=== PATIENT | female | born 1940 | race Caucasian/White ===

== ENCOUNTER 2023-01-18 13:15 | Outpatient (CLI) | payer MEDICARE, SELFPAY ==
[2023-01-18 15:36] LABS: Basophils Percent Auto 0.5 % (0.2-1.2); Eosinophils Absolute Auto 0.2 K/mm3 (0-0.3); Eosinophils Percent Auto 2.6 % (0-4.4); Hematocrit 36.6 % (37.0-47.0); Hemoglobin 11.7 g/dL (12.0-15.0); Immature Granulocyte Absolute 0.02 K/mm3 (0.00-0.031); Immature Granulocyte Percent A 0.3 % (0-0.5); Lymphocytes Absolute Auto 1.61 K/mm3 (0.9-3.2); Lymphocytes Percent Auto 26.1 % (18.3-44.2); Mean Corpuscular Hemoglobin 30.1 pg (26-34); Mean Corpuscular Volume 94.1 fl (80-100); Mean Platelet Volume 12.5 fl (7.4-10.4); Monocytes Absolute Auto 0.7 K/mm3 (0.1-0.6); Monocytes Percent Auto 11.5 % (2.6-8.5); Neutrophils Absolute Auto 3.7 K/mm3 (1.3-6.7); Platelet Count Result 141 k/mm3 (150-375); Red Blood Count 3.89 M/mm3 (4.2-5.4); Red Cell Distribution Width 13.2 % (11.5-14.5); White Blood Count 6.2 K/mm3 (4.5-10.0)
[2023-01-18 15:52] LABS: Albumin Level 4.6 g/dL (3.5-5.1); Estimated Glomerular Filt Rate 43; Glucose 101 mg/dL (65-110)
[2023-01-18 16:13] LABS: Urine Cotinine NEGATIVE
[2023-01-18 17:43] LABS: Hemoglobin A1C 5.6 % (<5.7)
== END 2023-01-18 13:16 | disposition home or self-care (01) ==
LOC: ANHSURGERY 13:25
PROVIDERS: Visit Provider Orthopaedic Surgery
DX: M16.11 Unilateral primary osteoarthritis, right hip (principal); Z01.818 Encounter for other preprocedural examination
CPT/HCPCS: 80307; 82040; 82565; 82947; 83036; 85025; 87081

== ENCOUNTER 2023-02-11 01:15 | Day surgery (SDC) | payer MEDICARE, SELFPAY ==
[2023-01-18 14:00] VITALS: BMI 26.5
--- NOTE | 2023-01-18 14:36 | PC.NURSE ---
Report to the Outpatient Waiting Room, entrance under the green pavilion located off [facility], at time __0600 on date _02/11/23 . Planned Procedure Time: __0730 . Time changes happen often and if your time is changed the preop area will call you the afternoon before. - You and your visitor will be asked to self-screen and do not enter if you have any COVID symptoms. - A mask is optional within the hospital at this time. Patients may have clear liquids (water, carbonated beverages, clear teas, apple juice) until 3 hours prior to surgery with a maximum of 20 ounces. - No food from midnight until time of surgery - Infants may have breast milk until 4 hours before surgery, infant formula 6 hours prior to surgery. - Children will be allowed to drink immediately following surgery. If applicable, please bring a bottle or sippy cup to assist with drinking. Juice, water, soda, and popsicles are readily available. For infants on formula, please bring formula the day of surgery. Pacifiers are allowed. Take the following medications with a SIP of water the morning of surgery: ____ATENOLOL,LEVOTHYROXINE DO NOT STOP ANY OF YOUR OTHER PRESCRIPTION MEDICATIONS PRIOR TO SURGERY ?EXCEPT THE FOLLOWING Medications to discontinue per physician ALL VITAMINS AND SUPPLEMENTS 3 DAYS PRE OP.LAST DOSE 02/08/23 Please no make-up, nail israeli, hairspray, perfume, deodorant, or body powder the day of surgery. No jewelry (including any body piercings) or valuables the day of surgery, leave them at home. Please take a shower or bath the night before, or the morning of, surgery with an antibacterial soap. Wear comfortable, loose fitting clothing. Children are encouraged to wear pajamas. - Jewelry must be removed prior to entering the operating room. Rings and piercings that are not removed may be cut off. - The hospital will not accept responsibility for valuables. - Please leave all valuables, including medications, at home the day of surgery. If you are going home after surgery, a licensed combine driver must drive you home. - NO public transportation without another adult if you receive anesthesia. - We recommend that an adult stay with you for 24 hours following discharge. - We also recommend that you do not drive, make important decision, drink alcoholic beverages, or take any drugs that were not prescribed by your health care provider for at least 24 hours after your discharge time. For Pediatric surgeries, we recommend two adults accompany the child home. Follow any additional instructions given to you from your surgeon. If you or anyone in your household have experienced Covid symptoms in the past week, please notify your surgeon or the nurse liaison at the phone number below for possible testing. VERBAL AND WRITTEN instructions given to _PATIENT and asked if any additional questions and then verbalized understanding. Patient advised to call surgeon office or pre surgery nurse liaison [phone] if any additional questions.
[2023-01-18 14:57] VITALS: BP 165/67; PULSE 54; RESP 18; TEMP 36.7; O2SAT 98
--- NOTE | 2023-02-10 15:00 | WPDANESEPPF ---
Anes - Initial Pre Proc Eval Procedure: Operation Date: 02/11/23 07:30 Proposed Procedures p Right Total Hip Arthroplasty - Ildefonso Ray MD Date/Time: 02/10/23 15:00 Surgeon: Ildefonso Ray MD Pre Op Diagnosis: primary OA right hip Patient Data Age: 83 Gender: F Height: 1.63 m Weight: 70.2 kg Last Vital Signs Temp 98.0 F 01/18/23 14:57 Pulse 54 L 01/18/23 14:57 Resp 18 01/18/23 14:57 BP 165/67 H 01/18/23 14:57 Pulse Ox 98 01/18/23 14:57 O2 Del Method Room Air 01/18/23 14:57 Allergies Allergy/AdvReac Type Severity Reaction Status Date / Time No Known Drug Allergies Allergy Unknown Unknown Verified 02/11/23 06:20 Home Medications Medication Instructions Recorded Confirmed Type atenolol 25 mg tablet 25 mg PO DAILY 09/01/22 02/11/23 History levothyroxine 75 mcg tablet 75 mcg PO DAILY 09/01/22 02/11/23 History (Euthyrox) nifedipine 60 mg tablet,extended 60 mg PO QPM 09/01/22 02/11/23 History release pravastatin 20 mg tablet 20 mg PO QPM 09/01/22 02/11/23 History acetaminophen 500 mg capsule 1,000 mg PO TID PRN Pain 01/18/23 02/11/23 History cholecalciferol (vitamin D3) 50 50 mcg PO DAILY 01/18/23 02/11/23 History mcg (2,000 unit) tablet multivitamin (Daily Multi-Vitamin 1 tablet PO DAILY 01/18/23 02/11/23 History tablet) Patient hx anesthesia problems: post op nausea/vomiting Family hx anesthesia problems: none Results Review: All pre-operative results and documents have been reviewed as part of the pre-operative evaluation. [facility] Past Medical History Medical History Cholelithiasis COPD (chronic obstructive pulmonary disease) Diverticulosis Hiatal hernia History of bruising easily Hyperlipidemia Hypertension Osteoarthritis Sleep apnea Surgical History Surgical History History of left mastectomy History of thyroidectomy Right History of tooth extraction Family History Family History Father Colon cancer high risk Social History Social History Smoking packs per day: 2 Smoking cigarettes per day: 40.0 Years smoked: 20 Smoking pack-years: 40.00 Smoking status: Former smoker Tobacco type: cigarettes Smoking end date: 06/14/74 Additional smoking assessment comments: DENIES ANY FORM OF TOBACCO USE Alcohol intake: never Substance use: never Lack of Transportation: No Lack of Food: Never True Current Housing: I Have Housing Concerned About Future Housing: No Difficulty Paying Gas/Electric Bills: No Difficulty Paying for Meds: No Currently Unemployed: No Education: High School Diploma/GED Difficulty w/ Childcare or Family Care: No Living arrangements: alone Occupation/Education: retired Gender identity (if verbalized by the patient): Female Spiritual care concerns: No Anes - Eval Final PreProcedure Day of Procedure 02/10/23 15:00 Patient weight: normal Heart: regular rate and rhythm Lungs: clear to auscultation Airway: Mallampati scale class II Neurological: alert and oriented Last oral intake: >/= 8 hours ASA classification: III Emergent: no Anesthetic plan: proceed Anesthesia type and monitoring: general ETT and standard monitoring Results Review: All pre-operative results and documents have been reviewed as part of the pre-operative evaluation. Informed Consent: The patient's anesthetic plan and its attendant risks and benefits were discussed with the patient/family/POA. Questions were solicited and answers provided to the satisfaction of the patient/family/POA.
[2023-02-11] VITALS (17 sets, daily range): BP systolic 130–168; BP diastolic 53–91; PULSE 51–79; RESP 12–18; TEMP 36.2–36.8; O2SAT 92–100
--- NOTE | ~2023-02-11 | XR_ITS ---
Right Hip Technique: Portable AP an lateral views Clinical History: Status post hip arthroplasty Findings: Patient is status post right hip arthroplasty. Orthopedic hardware alignment appears anatom ic. No hardware complication is evident. Subcutaneous emphysema and swelling is likely postoperative in nature. No acute osseous fracture is seen. Impression: Status post total right hip arthroplasty, without evidence of hardware complication. Reviewed, dictated and finalized at location . Impression: Status post total right hip arthroplasty, without evidence of hardware complica tion.
[2023-02-11] MEDS: ACETAMINOPHEN 500 MG TABLET 1000 MG PO ×4 (06:30→23:26)
[2023-02-11] MEDS: LACTATED RINGERS 1,000 ML 30 ML IV CONT ×2 (06:40→10:22)
[2023-02-11] MEDS: TRANEXAMIC ACID 1,000MG/ISO100 1,000 MG/100 ML BAG 200 MG IVPB (07:14)
--- NOTE | 2023-02-11 07:15 | WPDHPUPDATE1 ---
History and Physical Update Update Date/Time: 02/11/23 07:15 History and Physical has been reviewed, including an updated exam of the patient. There are NO changes in the patient's condition. Risks, benefits, and alternatives have been discussed and questions answered. Patient agrees to proceed with procedure.
[2023-02-11] MEDS: ceFAZolin 2 GM/D5W 50 ML 2 GM/50 ML BAG IVPB ×3 (07:33→22:19)
--- NOTE | 2023-02-11 10:31 | W.PM.PROC2 ---
Procedure Note - Detailed Date of Procedure 02/11/23 Pre-op Diagnosis primary OA right hip Post-op Diagnosis Same Procedure Performed Right Total Hip Arthroplasty Surgeon Ildefonso Ray MD Access Service Representative Daria Guillen PA-C Anesthesia General Findings Satisfactory bone quality. Acetabulum slightly shallow. Two supplemental screws used. Some acetabular retroversion with large osteophytes anteriorly. Cup placed approximately 20? anteversion. Femoral approximately 10? anteversion. Combined 30? anteversion. Description of Procedure The patient was given preoperative antibiotics. A general anesthetic was administered. The patient was carefully placed in the lateral decubitus position on the PEG board. The shoulders and hips were carefully positioned for component and leg length positioning reference. The hip was prepped and draped in the usual sterile fashion. A longitudinal incision was created over the posterior aspect of the greater trochanter. Careful dissection was brought down through the deep fascia with electrocautery. A minimally invasive optimized posterior approach to the hip was performed. The short external rotators and capsule were taken down in an L-shaped capsulotomy. The tissue was tagged for later repair using number 2 high strength suture. The femoral neck was measured and taken in situ. The femoral head was removed. The acetabulum was carefully exposed. The inferior capsule was released. The labrum was resected. The acetabulum was sequentially reamed to the intended cup size. The cup was impacted into position with excellent press-fit. Typical anatomic landmarks, including the bony contact points as well as the inferior transverse acetabular ligament were used to confirm cup positioning with preoperative templating. Two supplemental screws were placed. Attention was turned to the femur, which was carefully exposed. The hip was reamed and then broached sequentially. Excellent press-fit was obtained with the broach. The hip was trialed. Measurements were utilized, including the lesser trochanter as well as the center of the femoral head and the tip of the trochanter, and excellent assessment of the offset and leg lengths were confirmed. The real component was impacted into position. Trialing confirmed appropriate leg length and offset with soft tissue balancing as well apparent feel of the leg, both at the knee and the heel. Soft tissues were assessed using the the iliotibial band. Reduction of the posterior capsule and external rotators were also used as a secondary assessment. The hip was copiously irrigated with pulsatile lavage antibiotic solution periodically throughout the procedure. The real components were then assembled and reduced. The hip was stable throughout typical maneuvers, including extension, external rotation to 70 degrees, the position of sleep as well as flexion to 90 degrees with internal rotation past 35 degrees. The shake test confirmed stability without impingement. Osteophytes were removed as necessary. The short external rotators and capsule were repaired back to the posterior trochanter through drill holes. The deep fascia was repaired with running number 2 Quill suture, followed by 0 Stratafix suture and 2-0 Stratafix suture in the dermis. Steri-Strips were placed on the skin, followed by a sterile silver occlusive dressing. There were no complications. Meticulous hemostasis was maintained with the AquaMantys device. The patient was brought to the recovery room in stable condition. There were no complications. Physician assistant director of financial aid, Daria Guillen PA-C, required for surgery; including patient positioning, draping, tissue retraction, maintaining instrument position, hip dislocation/ relocation, wound closure, and dressing placement. Implants The Accolade II hip stem, 127 degree size 4 , was utilized with excellent press-fit. The 48 mm Trident II acetabular component was impacted with exc
--- NOTE | 2023-02-11 12:07 | ADMGEN ---
This patient, Yany Meek, was admitted to Medical Room 251-. Patient/family oriented to hospital policies and general routines including ID bracelet, bed and alarms, visiting hours, pain management, procedures, bathroom and other care routines, personal items, smoking policy, room service/diet, and visiting hours. Information on how to activate the Rapid Response Team has been discussed. Patient/Family are encouraged to report perceived risks to care and to ask questions if they do not understand what they are told or what they should do.
[2023-02-11] MEDS: SODIUM CHLORIDE 0.9% IV 1,000 ML 125 ML IV CONT (12:59)
[2023-02-11] MEDS: ASPIRIN 81 MG ENTERIC TABLET PO (18:54)
[2023-02-11] MEDS: PRAVASTATIN SODIUM 20 MG TABLET PO (18:55)
[2023-02-11] MEDS: NIFEdipine 30 MG TAB.ER.24 60 MG PO (18:55)
[2023-02-11] MEDS: SENNA/DOCUSATE SODIUM TABLET 2 TAB PO (18:55)
[2023-02-11] MEDS: FAMOTIDINE 20 MG TABLET PO (20:42)
[2023-02-12 00:10] VITALS: BP 126/45; PULSE 73; RESP 18; TEMP 36.2; O2SAT 93
[2023-02-12] MEDS: LEVOTHYROXINE SODIUM 75 MCG TABLET PO (03:19)
[2023-02-12 04:11] VITALS: BP 110/51; PULSE 67; RESP 20; TEMP 36.8; O2SAT 96
[2023-02-12] MEDS: ACETAMINOPHEN 500 MG TABLET 1000 MG PO ×2 (06:38→11:45)
[2023-02-12 09:05] VITALS: BP 113/59; PULSE 67; RESP 14; O2SAT 97
[2023-02-12] MEDS: ASPIRIN 81 MG ENTERIC TABLET PO (09:06)
[2023-02-12 09:07] VITALS: PULSE 66
[2023-02-12] MEDS: SENNA/DOCUSATE SODIUM TABLET 2 TAB PO (09:07)
[2023-02-12] MEDS: FAMOTIDINE 20 MG TABLET PO (09:07)
[2023-02-12] MEDS: polyethylene glycoL 3350 17 GM POWD.PACK PO (09:07)
[2023-02-12] MEDS: CYCLOBENZAPRINE HCL 10 MG TABLET PO (09:07)
[2023-02-12] MEDS: atenoloL 25 MG TABLET PO (09:07)
--- NOTE | 2023-02-12 09:15 | PM.DS ---
DS: Admitting Diagnosis Discharge Date 02/13/12 Admitting Diagnosis OA Right hip DS: Discharge Diagnosis Discharge Diagnosis (1) Status post total hip replacement, right: Code(s): Z96.641 - Presence of right artificial hip joint Status: Acute Assessment and Plan: Postop day 1: Total hip arthroplasty. Patient tolerated procedure well. No complications. Pain manageable with pain medication. No numbness or tingling. We had a lengthy discussion regarding postoperative wound care, limitations, expectations, and exercises. Patient shows good understanding. Patient has had initial physical therapy and is tolerating it well. DVT prophylaxis: 81 mg baby aspirin b.i.d. for 14 days. Short frequent walks. Pain medication: Percocet. Meloxicam Patient has followup appointment with Dr. Ray in 3 weeks DS: Summary Hospital Course Reason for hospitalization: Total hip arthroplasty Hospital Course: Patient tolerated procedure well. Has had initial PT/OT and made good progress. Status at Discharge Functional status at discharge: uses cane/walker Overall status at discharge: patient is progressing back to baseline Time Spent with Patient Time attestation: Total time spent providing and/or coordinating discharge services: Exam Narrative: Normal weight 83 y/o female. Resting comfortably in bed. Wearing compression socks bilaterally. Dressing dry and intact with no drainage. Moderate swelling. No ecchymosis. No erythema. No hematoma. Range of motion limited due to pain. Calf nontender. Thigh nontender. Neurologic status intact. No varicosities. Distal pulses palpable. Discharge Plan Discharge Patient Disposition: Home, Self-Care Discharge Instructions: See green instruction sheet Stand Alone Forms: General Discharge Instructions Follow-up/Referrals: Daria Guillen PA [Physician Paradichlorobenzene Machine Operator] - Discharge Medications: New meloxicam 15 mg tablet 15 mg PO DAILY Qty: 30 0RF Rx Instructions: Cut in half. Take 1/2 in morning and 1/2 at night. Take with food. Stop if stomach upset. aspirin 81 mg tablet,delayed release (DR/EC) 81 mg PO BID 14 Days Qty: 28 0RF oxycodone-acetaminophen 5-325 mg tablet 1 - 2 tablet PO Q4-6H MDD 6 PRN (Reason: pain) Qty: 30 0RF Continued atenolol 25 mg tablet 25 mg PO DAILY nifedipine 60 mg tablet extended release 60 mg PO QPM pravastatin 20 mg tablet 20 mg PO QPM levothyroxine [Euthyrox] 75 mcg tablet 75 mcg PO DAILY multivitamin [Daily Multi-Vitamin] Tablet 1 tablet PO DAILY cholecalciferol (vitamin D3) 50 mcg (2,000 unit) Tablet 50 mcg PO DAILY Held acetaminophen 500 mg Capsule 1,000 mg PO TID PRN (Reason: Pain) Hold Instructions: Resume on 02/18/23. Do not take more than 3,000 mg in 24 hours. Oxycodone has 325 mg Tylenol ineach pill.
[2023-02-12 09:59] LABS: Basophils Percent Auto 0.2 % (0.2-1.2); Hematocrit 29.5 % (37.0-47.0); Hemoglobin 9.4 g/dL (12.0-15.0); Immature Granulocyte Absolute 0.14 K/mm3 (0.00-0.031); Immature Granulocyte Percent A 1.3 % (0-0.5); Lymphocytes Absolute Auto 1.14 K/mm3 (0.9-3.2); Lymphocytes Percent Auto 10.3 % (18.3-44.2); Mean Corpuscular HGB Conc 31.9 g/dl (32-36); Mean Corpuscular Hemoglobin 30.1 pg (26-34); Mean Corpuscular Volume 94.6 fl (80-100); Mean Platelet Volume 11.2 fl (7.4-10.4); Monocytes Absolute Auto 0.8 K/mm3 (0.1-0.6); Monocytes Percent Auto 7.6 % (2.6-8.5); Neutrophils Absolute Auto 8.9 K/mm3 (1.3-6.7); Neutrophils Percent Auto 80.6 % (45.5-73.1); Platelet Count Result 201 k/mm3 (150-375); Red Blood Count 3.12 M/mm3 (4.2-5.4); Red Cell Distribution Width 14.3 % (11.5-14.5); White Blood Count 11.1 K/mm3 (4.5-10.0)
[2023-02-12 10:00] VITALS: BP 114/54; PULSE 62; RESP 17; TEMP 36.4; O2SAT 100
--- NOTE | 2023-02-12 10:01 | WPDANESPN ---
Anes - Prog Note Post-Op Date/Time: 02/12/23 10:01 Cardiovascular status: normal Respiratory status: normal Airway patency: baseline Mental status: baseline Post-Op hydration status: normal Vital Signs: Last Vital Signs Temp 36.8 C 02/12/23 04:11 Pulse 66 02/12/23 09:07 Resp 14 02/12/23 09:05 BP 113/59 L 02/12/23 09:05 Pulse Ox 97 02/12/23 09:05 O2 Del Method Room Air 02/11/23 20:00 O2 Flow Rate 1.5 02/11/23 13:56 Pain Score (VAS): 0 I/O: Intake & Output 02/11/23 02/12/23 02/12/23 23:59 07:59 15:59 Intake Total 1220 340 240 Balance 1220 340 240 Laboratory Tests 02/12/23 09:43 02/12/23 09:43 WBC 11.1 H RBC 3.12 L Hgb 9.4 L Hct 29.5 L MCV 94.6 MCH 30.1 MCHC 31.9 L RDW 14.3 Plt Count 201 MPV 11.2 H Immature Gran % (Auto) 1.3 H Neut % (Auto) 80.6 H Lymph % (Auto) 10.3 L [place] % (Auto) 7.6 Eos % (Auto) 0.0 Baso % (Auto) 0.2 Lymph # (Auto) 1.14 [place] # (Auto) 0.8 H Eos # (Auto) 0.0 Baso # (Auto) 0.0 Abs Immat Gran (auto) 0.14 H Absolute Neuts (auto) 8.9 H Absolute Nucleated RBC 0.0 Nucleated RBC % 0.0 Sodium Pending Potassium Pending Chloride Pending Carbon Dioxide Pending Anion Gap Pending BUN Pending Creatinine Pending Estim Creat Clear Calc Pending Estimated GFR Pending Glucose Pending Calcium Pending Post-procedural complaints: none Patient Feedback: Patient satisfied with anesthetic care.
[2023-02-12 10:10] LABS: Anion Gap 12 mmol/L (8-16); Blood Urea Nitrogen 22 mg/dL (7-17); Calcium 8.5 mg/dL (8.4-10.2); Carbon Dioxide 19 mmol/L (22-30); Chloride 108 mmol/L (98-107); Estimated CRCL calculation 27 ml/min; Estimated Glomerular Filt Rate 43; Glucose 126 mg/dL (65-110); Potassium 4.4 mmol/L (3.4-5.0); Sodium 139 mmol/L (137-145)
[2023-02-12] MEDS: CEPHALEXIN 500 MG CAPSULE PO (11:12)
== END 2023-02-12 11:50 | disposition home or self-care (01) ==
LOC: ANHSURGERY 07:43 → ANH2MED 11:55
PROVIDERS: Physician Assistant Surgical; Visit Provider Orthopaedic Surgery
PROC: (CPT 27130; principal; 2023-02-11 07:30)
DX: M16.11 Unilateral primary osteoarthritis, right hip (principal); J44.9 Chronic obstructive pulmonary disease, unspecified; I10 Essential (primary) hypertension; E78.5 Hyperlipidemia, unspecified; G47.30 Sleep apnea, unspecified; E89.0 Postprocedural hypothyroidism; Z87.891 Personal history of nicotine dependence
CPT/HCPCS: 27130; 36415; 73502; 80048; 80307; 82040; 82565; 82947; 83036; 85025; 86850; 86900; 86901; 87081; 97110; 97116; 97161; 97165; 97530; 97535; A9270; C1713; C1776; J0171; J0690; J1100; J1170; J1885; J2270; J2405; J2704; J2710; J2795; J3010; J7030; J7120